=== PATIENT | male | born 1945 | race Caucasian/White ===

== ENCOUNTER 2018-04-05 12:48 | Day surgery (SDC) | payer OTHER ==
[2018-04-05 13:24] VITALS: BP 128/69; PULSE 80; RESP 16; TEMP 98.2; O2SAT 98
[2018-04-05 14:20] VITALS: BP 134/78; PULSE 62; RESP 18; TEMP 98.2; O2SAT 97
[2018-04-05] MEDS ORDERED: LIDOCAINE HCL 1% 20 ML VIAL ONE (14:24)
--- NOTE | 2018-04-05 14:49 | RADRPT ---
EXAM DATE/TIME: 04/05/2018 13:29 [place] COMPARISON: No previous studies available for comparison. EXTERNAL COMPARISON: [facility], PET/CT TUMOR, Mar 20 2018. INDICATIONS : Enlarged left axilla lymph node. MEDICAL HISTORY : Carcinoma, anal. SURGICAL HISTORY : Anal cancer excision. Radiation therapy. ENCOUNTER: Initial ACUITY: 2 weeks PAIN SCORE: 0/10 LOCATION: Left axilla. ORGAN: Left lymph node SPECIMENS: Five core specimen(s) submitted for pathologic evaluation. DEVICE: 18 gauge Temno needle Post procedure scanning reveals no hematoma or other complication. The possibility does exist that the tissue obtained will be non-diagnostic. If the sample is non-stephani gnostic a repeat biopsy or surgical biopsy may need to be performed. TECHNIQUE: 1. Ultrasound guidance for needle biopsy. 2. Needle biopsy. The risks, benefits and alternatives to the procedure were explained and verbal and written consent w as obtained. The site was prepped in sterile fashion. Full sterile technique was used, including ca p, mask, sterile gloves and gown and a large sterile sheet. Hand hygiene and 2% chlorhexidine and/or betadine/alcohol prep was utilized per protocol for cutaneous antisepsis. The skin and subcutaneous tissues were infiltrated with local anesthetic solution. Sterile gel and sterile probe cover were u tilized for ultrasound guidance. With the patient on the ultrasound table, images were obtained. A needle was advanced into the identified target and the number of specimens as above obtained and todd bmitted for pathologic evaluation. The patient tolerated the procedure well and left the ultrasound suite in stable condition. CONCLUSION: Uncomplicated ultrasound guided needle biopsy. 3 core samples were placed in RPR solution. 2 core melody ples were placed in formalin. The samples were appropriately labeled and were sent to pathology. Demetrius Lance MD on April 05, 2018 at 14:47 Board Certified Radiologist. This report was verified electronically.
[2018-04-05 14:50] VITALS: BP 133/78; PULSE 59; RESP 18; O2SAT 95
== END 2018-04-05 14:50 | disposition home or self-care (01) ==
LOC: HRAD 12:48 → HRIP 12:48 → HRAD 14:50
PROVIDERS: ATTEND Radiology Body Imaging
DX: R59.9 Enlarged lymph nodes, unspecified (principal)
CPT/HCPCS: 38505; 76942; 88184; 88185; 88307; 88341; 88342